=== PATIENT | female | born 1995 | race Caucasian/White ===

== ENCOUNTER 2018-07-10 02:35 | Emergency (ER) | payer OTHER ==
[~2018-07-10] VITALS: Ht 165.1 cm; Wt 61.2 kg
[2018-07-10 02:39] VITALS: BP 127/80
--- NOTE | 2018-07-10 02:39 | NUR ---
TO BED # 03 AMBULATORY
--- NOTE | 2018-07-10 02:50 | NUR ---
PT TO ED WITH C/O HEADACHE SINCE 1100HRS YESTERDAY. PT DENIES ANY INJURY OR TRAUMA. NO NEURO DEFECITS NOTED. DENIES N/V. PT PLACED INTO BED, PENDING MD CISSE.
[2018-07-10] MEDS ORDERED: KETOROLAC 30 MG/ML VIAL IM ONE (03:00)
[2018-07-10] MEDS ORDERED: PROCHLORPERAZINE 5 MG TAB PO ONE (03:00)
--- NOTE | 2018-07-10 03:40 | NUR ---
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
[2018-07-10 03:50] VITALS: BP 119/74
== END 2018-07-10 03:50 | disposition home or self-care (01) ==
LOC: MED 02:35
DX: G43.909 Migraine, unspecified, not intractable, without status migrainosus (principal); Z88.0 Allergy status to penicillin
CPT/HCPCS: 96372; 99283; J1885; Q0164